=== PATIENT | male | born 1940 | race Caucasian/White ===

== ENCOUNTER → 2017-01-18 | Outpatient (CLI) | payer MEDICARE | END | disposition home or self-care (01) | LOC: CFH 07:40 | PROVIDERS: ATTEND Internal Medicine Cardiovascular Disease | DX: I51.7 Cardiomegaly (principal); I08.3 Combined rheumatic disorders of mitral, aortic and tricuspid valves; I37.1 Nonrheumatic pulmonary valve insufficiency; E78.5 Hyperlipidemia, unspecified | CPT/HCPCS: 78452; 93017; 93306; A9502 ==

== ENCOUNTER → 2017-05-30 | Outpatient (CLI) | payer MEDICARE ==
[~2017-05-30] MED LIST: OMNIPAQUE 350 MG/ML, 100ML BOTTLE ONE
== END | disposition home or self-care (01) ==
LOC: CFH 11:57
PROVIDERS: ATTEND Family Medicine
DX: N28.1 Cyst of kidney, acquired (principal); J98.6 Disorders of diaphragm; I70.0 Atherosclerosis of aorta; R91.1 Solitary pulmonary nodule; D37.6 Neoplasm of uncertain behavior of liver, gallbladder and bile ducts
CPT/HCPCS: 74160; Q9967